=== PATIENT | female | born 1995 | race Caucasian/White ===

== ENCOUNTER 2021-06-10 17:53 | Emergency (ER) | payer SELFPAY ==
[~2021-06-10] VITALS: Ht 165.1 cm; Wt 76.7 kg
[2021-06-10 18:13] VITALS: BP 114/71
--- NOTE | 2021-06-10 18:16 | NUR ---
PT TO WAIT IN LOBBY.
--- NOTE | 2021-06-10 18:31 | NUR ---
PT STATES UNABLE TO PEE. WATER PROVIDED AT THIS TIME.
--- NOTE | 2021-06-10 18:50 | NUR ---
PT CALLED IN LOBBY, NO ANSWER. MADE AWARE.
--- NOTE | 2021-06-10 19:16 | NUR ---
CALLED TO TRIAGE. LWBS
== END 2021-06-10 18:50 | disposition left against medical advice (07) ==
LOC: MED 17:53
DX: R33.9 Retention of urine, unspecified (principal); Z53.21 Procedure and treatment not carried out due to patient leaving prior to being seen by health care provider